=== PATIENT | female | born 1970 | race Caucasian/White ===

== ENCOUNTER 2021-12-04 05:46 | Emergency (ER) | payer OTHER ==
[~2021-12-04 05:46] MED LIST: NAPROXEN500 MG PO; PREDNISONE 20MG20 MG PO
[2021-12-04 06:21] LABS: BASOPHIL 0.4 % (0-2); EOSINOPHIL 2.7 % (0-5); HCT 31.5 % (37.0-47.0); HGB 9.7 g/dl (12.5-16.0); LYMPHOCYTE 23.7 % (15-48); MCH 23.8 pg (25.0-31.0); MCHC 30.8 g/dL (32.0-36.0); MCV 77.2 fL (78.0-100.0); MONOCYTE 12.5 % (0-12); MPV 9.9 fL (6.0-9.5); NEUTROPHIL 60.3 % (41-80); NRBC 0; PLT 211 K/uL (150-400); RBC 4.08 M/uL (4.20-5.40); RDW 16.8 % (11.5-14.0); WBC 4.8 K/uL (4.0-10.5)
[2021-12-04 06:34] LABS: ALBUMIN 3.4 g/dL (3.4-5.0); BILIRUBIN - TOTAL 0.2 mg/dL (0.2-1.0); CREATININE 0.75 mg/dL (0.51-0.95); GLOBULIN (CALCULATION) 3.3 g/dL; MAGNESIUM 2.4 mg/dL (1.8-2.4); POTASSIUM 4.6 mmol/L (3.5-5.1); TOTAL PROTEIN 6.7 g/dL (6.4-8.2)
[2021-12-04] MEDS ORDERED: MIRAPEX0.25 MG PO (06:41)
== END 2021-12-04 06:59 | disposition home or self-care (01) ==
LOC: FER 05:46
PROVIDERS: Emergency Medicine
DX: R25.2 Cramp and spasm (principal)
CPT/HCPCS: 36415; 80053; 83735; 84100; 85025; 99283; J1885